=== PATIENT | male | born 1965 | race Hispanic/Latino ===

== ENCOUNTER 2022-01-09 09:21 | Emergency (ER) | payer BC ==
[~2022-01-09] VITALS: Ht 177.8 cm; Wt 89.4 kg
[2022-01-09] MEDS ORDERED: DOCU-116 PO (09:31)
[2022-01-09 09:32] VITALS: BP 167/95
== END 2022-01-09 09:50 | disposition home or self-care (01) ==
LOC: EDH 09:21
DX: K59.00 Constipation, unspecified (principal); E11.9 Type 2 diabetes mellitus without complications; I10 Essential (primary) hypertension